=== PATIENT | female | born 2005 | race Caucasian/White ===

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

== ENCOUNTER 2023-07-21 08:07 | Outpatient (AMB) | payer BC, SELFPAY ==
[2023-07-21 08:26] VITALS: BP 100/62; PULSE 99; O2SAT 98
--- NOTE | 2023-07-21 08:26 | AM.OFFWIN_ITS ---
Intake Vital Signs 07/21/23 08:26 Height 5 ft 3 in BP 100/62 Blood Pressure Location Rt brachial Position Sitting Pulse 99 Pulse Source Pulse Oximeter Pulse Oximetry (%) 98 Oxygen Delivery Method Room Air Intake Visit Reasons: EST/uti (lobby) Intake Note: pt is here for c/o possible uti Patient Tobacco Use Status: Never used Tobacco Allergies No Known Allergies Allergy (Verified 07/21/23 08:36) Medication List - Last Reconciled 07/21/23 by Moi Michelle MD amitriptyline 10 mg PO BEDTIME 30 days levonorgestrel-ethinyl estrad 0.1-20 mg-mcg (Aviane) 1 tab PO DAILY magnesium oxide 250 mg PO BEDTIME riboflavin (vitamin B2) 200 mg (2 x 100 mg) PO BID sumatriptan succinate 100 mg PO; 1/2 tab to 1 tab at onset of migraine. Max 200 mg a day, Do not exceed 4 tabs a week. 30 days Do you need a note to return to daycare/school/sports/work: No HPI EST/uti (lobby) HPI Details Patient presents for a sick visit. Reports symptoms of increased frequency of urination, burning on urination and discomfort in the suprapubic area. Symptoms started in the past few days. No fevers or chills. No nausea or vomiting. [facility] Medical History (Updated 01/23/23 @ 02:40 by Iesha Santizo MD) Irregular menses Vitamin D deficiency Anxiety and depression Surgical History No pertinent past surgical history Family History Mother No problems noted. Family/Other Hx of migraines Social History Household Members: Family Housing: House Alcohol intake: never Patient Tobacco Use Status: Never used Tobacco e-Cigarette/Vaping Use: Never Used Second Hand Smoke Exposure: No service: No Current occupational status: student Cognitive needs: No Hearing needs: No Vision needs: No Physical Exam Vital Signs: Last Vital Signs Pulse 99 07/21/23 08:26 BP 100/62 07/21/23 08:26 Pulse Ox 98 07/21/23 08:26 Oxygen Delivery Method Room Air 07/21/23 08:26 Other: No suprapubic tenderness General: Yes Bimanual renal exam normal bilaterally and Yes no CVA tenderness Back/Spine/Pelvis Back: no CVA tenderness Assessment & Plan Assessment & Plan (1) Urinary tract infection: Code(s): N39.0 - Urinary tract infection, site not specified Plan: Bactrim and Pyridium called in. If symptoms do not improve to follow-up here. Coding Level of Care Code Est Pt Level 3 (27391) Diagnoses Urinary tract infection N39.0
== END 2023-07-21 08:45 | disposition home or self-care (01) ==
PROVIDERS: PCP Internal Medicine; Visit Provider Internal Medicine
DX: N39.0 Urinary tract infection, site not specified (principal)
CPT/HCPCS: 99213

== ENCOUNTER 2023-08-10 10:44 | Outpatient (AMB) | payer BC, SELFPAY ==
[2023-08-10 10:47] VITALS: BP 110/72; PULSE 83; TEMP 36.4; O2SAT 97; BMI 21.3
--- NOTE | 2023-08-10 10:47 | MHC.OFFWIV ---
Intake Vital Signs 08/10/23 10:47 Height 5 ft 3 in Weight 120 lb BMI 21.3 BP 110/72 Blood Pressure Location Lt brachial Position Sitting Pulse 83 Pulse Source Pulse Oximeter Temp 97.6 F Temp Source Temporal Artery Scan Pulse Oximetry (%) 97 Oxygen Delivery Method Room Air Intake Visit Reasons: EP ?UTI/stomach pains Intake Note: pt is here today for UTI started 1 month ago Patient Tobacco Use Status: Never used Tobacco Allergies No Known Allergies Allergy (Verified 08/10/23 10:55) Do you need a note to return to daycare/school/sports/work: No HPI HPI Comments History of Present Illness Details Patient presents to the walk-in today for sick visit, she was accompanied by her mother Endorses intermittent lower abdominal pain for last 4 weeks Recently treated for UTI, states urinary symptoms improved but continues with lower abdominal pain Endorses normal BMs, no nausea vomiting or diarrhea Tolerating p.o., no change in diet. No anorexia. Denies fevers, chills, weakness Reports she has not sexually active, no vaginal bleeding or discharge discharge. no concern for STI her . LMP last week, normal per patient. Pain occurs approximately 4 times per week. She is unable to reproduce the pain. She does not have any pain at this time Pain lasts for approximately 1 minute and then resolves on its own [facility] Medical History (Updated 08/10/23 @ 12:57 by Marianela Cleary APRN, SPEECH CLINICIAN) Irregular menses Vitamin D deficiency Anxiety and depression Surgical History No pertinent past surgical history Family History Mother No problems noted. Family/Other Hx of migraines Social History Household Members: Family Housing: House Alcohol intake: never Patient Tobacco Use Status: Never used Tobacco e-Cigarette/Vaping Use: Never Used Second Hand Smoke Exposure: No service: No Current occupational status: student Cognitive needs: No Hearing needs: No Vision needs: No Review of Systems Const All systems reviewed & are unremarkable except as noted in HPI and below Physical Exam Vital Signs: Last Vital Signs Temp 97.6 F 08/10/23 10:47 Pulse 83 08/10/23 10:47 BP 110/72 08/10/23 10:47 Pulse Ox 97 08/10/23 10:47 Oxygen Delivery Method Room Air 08/10/23 10:47 BMI result Body Mass Index 21.3 General: awake, alert, oriented. Answers questions appropriately. Fully engaged in examination. Skin: warm, dry, intact HEENT: Normocephalic. Hearing intact. Cardiac: External chest normal in appearance. Respiratory: No cough, audible wheezing or stridor. Abdomen: without gross distension. soft, nontender. no guarding. no CVA tenderness. MS: No obvious swelling or deformities. Neurological: Oriented to person, place, time and situation. Thought process intact. No gait abnormalities appreciated. Psychiatric: Appropriate mood and affect. Good judgment and insight. Results AMB Urinalysis, Automated UA Leukoctes 0 Ar/uL Last Edit by LINDA Harris on 08/10/23 11:11 UA Nitrite Negative Last Edit by Ashley Tapia CCM on 08/10/23 11:11 UA Urobilinogen 0.2 mg/dL Last Edit by Ashley Tapia CCM on 08/10/23 11:11 UA Protein 15 mg/dL Last Edit by Ashley Tapia CCM on 08/10/23 11:11 UA pH 6.0 Last Edit by Ashley Tapia CCM on 08/10/23 11:11 UA Blood 0 Priyank/uL Last Edit by Ashley Tapia CCM on 08/10/23 11:11 UA Specific [place] 1.025 Last Edit by LINDA Harris on 08/10/23 11:11 UA Ketone Positive Last Edit by Ashley Tapia CCM on 08/10/23 11:11 UA Bilirubin 0 mg/dL Last Edit by Ashley Tapia CCM on 08/10/23 11:11 UA Glucose 0 mg/dL Last Edit by Ashley Tapia CCM on 08/10/23 11:11 Results Reviewed Results Reviewed: Laboratory Last Values Urine pH (Auto) 6.0 08/10/23 11:08 Specific [place] (Auto) 1.025 08/10/23 11:08 Urine Protein (Auto) 15 mg/dL 08/10/23 11:08 Glucose (UA)(Auto) 0 mg/dL 08/10/23 11:08 Urine Ketones (Auto) Positive 08/10/23 11:08 Urine Blood (Auto) 0 Priyank/uL 08/10/23 11:08 Urine Nitrite (Auto) Negative 08/10/23 11:08 Urine Bilirubin (Auto) 0 mg/dL 08/10/23 11:08 Urine Urobilinogen (Auto) 0.2 mg/dL 08/10/23 11:08 Leukocyte Esterase (Auto) 0 Ar/uL 08/10/23 11:08 Assessment & Plan Assessment & Plan (1) Abdominal pain: Code(s): R10.9 - Unspecified abdominal pain Plan UA reviewed, negative for nitrites, negative for leuks. Patient denies UTI symptoms. Currently not experiencing any abdominal pain Abdominal exam benign, unable to reproduce pain on exam. Lengthy discussion with patient and her mother. Red flag symptoms reviewed with mother and patient. She seek treatment in the emergency room for red flag symptoms. Patient advised to follow up with PCP as planned. Orders: Orders AMB Urinalysis Automated Today Z13.9 - Encounter for screening, unspecified Coding Level of Care Code Est Pt Level 3 (99461) Diagnoses Abdominal pain R10.9
== END 2023-08-10 11:33 | disposition home or self-care (01) ==
PROVIDERS: PCP Internal Medicine; Visit Provider Registered Nurse Emergency
DX: R10.9 Unspecified abdominal pain (principal)
CPT/HCPCS: 81003; 99213

== ENCOUNTER 2023-08-18 10:22 | Outpatient (AMB) | payer BC, SELFPAY ==
[2023-08-18 10:48] VITALS: BP 120/86; PULSE 82; O2SAT 98; BMI 21.1
--- NOTE | 2023-08-18 10:48 | MHC.PC.OV ---
Vital Signs 08/18/23 10:48 Height 5 ft 3 in Weight 119 lb BMI 21.1 BP 120/86 Blood Pressure Location Lt brachial Position Sitting Pulse 82 Pulse Source Pulse Oximeter Pulse Oximetry (%) 98 Oxygen Delivery Method Room Air Intake Visit Reasons: followup [place], abd pain Intake Note: Pt is here today for her f/u [place] for UTI Allergies No Known Allergies Allergy (Verified 09/07/23 04:07) Medication List - Last Reconciled 09/07/23 by Iesha Santizo MD amitriptyline 10 mg PO BEDTIME 30 days levonorgestrel-ethinyl estrad 0.1-20 mg-mcg (Aviane) 1 tab PO DAILY magnesium oxide 250 mg PO BEDTIME phenazopyridine 200 mg PO TID 6 doses riboflavin (vitamin B2) 200 mg (2 x 100 mg) PO BID sumatriptan succinate 100 mg PO; 1/2 tab to 1 tab at onset of migraine. Max 200 mg a day, Do not exceed 4 tabs a week. 30 days Tobacco use date assessed: 08/18/23 Dental Screening Dental Screen Date: 12/10/22 Did you have a dental visit in the last 12 months?: Yes Did you have a dental problem in the last 6 months where you did not have access to dental care?: No Was dental information given to patient?: Patient has dentist HPI followup [place], abd pain HPI Details Continue old lady here today for follow-up after recent visit to the walk-in clinic, where she was seen for acute cystitis. She was already treated with an antibiotic for urinary tract infection at the end of June of 2023, return to the walk-in clinic several days ago still complaining of some vague abdominal pain with your now dipstick showed unremarkable findings, no evidence of UTI. Patient still having some vague lower abdominal cramping but no dysuria no urinary frequency no fever or chills. [facility] Medical History Irregular menses Vitamin D deficiency Anxiety and depression Surgical History No pertinent past surgical history Family History Mother No problems noted. Family/Other Hx of migraines Social History Household Members: Family Housing: House Alcohol intake: never Patient Tobacco Use Status: Never used Tobacco e-Cigarette/Vaping Use: Never Used Second Hand Smoke Exposure: No service: No Current occupational status: student Cognitive needs: No Hearing needs: No Vision needs: No Questionnaire PHQ-9 Over the last 2 weeks, how often have you been bothered by any of the following problems? 1. Little interest or pleasure in doing things: several days 2. Feeling down, depressed, or hopeless: several days 3. Trouble falling or staying asleep, or sleeping too much: several days 4. Feeling tired or having little energy: more than half the days 5. Poor appetite or overeating: more than half the days 6. Feeling bad about yourself - or that you are a failure or have let yourself or your family down: several days 7. Trouble concentrating on things, such as reading the newspaper or watching television: more than half the days 8. Moving or speaking so slowly that other people could have noticed. Or the opposite - being so fidgety or restless that you have been moving around a lot more than usual: not at all 9. Thoughts that you would be better off or of hurting yourself in some way: not at all Total score: 10 Depression Screening Interpretation: Positive ([facility] Depression Screening Follow-up: Existing condition and In treatment Depression Screening Done: Yes 55137 - PHQ-9 Billing: Yes Source: Developed by Drs. Dilip Meng, Divine Edward, Tez Gunn and colleagues, with an educational raúl from [email or web address]. Thrive Questionnaire Date Thrive assessed: 08/18/23 I am a: Patient What is your living situation today?: I have a steady place to live Within the past 12 months, did the food you bought not last and you didn't have the money to get more?: Never true Within the past 12 months, did you worry whether your food would run out before you got money to buy more?: Never true Do you have trouble paying for medicines?: No Do you have trouble getting transportation to medical appointments?: No Do you have trouble paying your heating and electricity bill?: No Do you have trouble taking care of your child, family member or friend?: No Do you have trouble with day-to-day activities such as bathing, preparing meals, shopping, managing finances, etc.?: No Are you currently unemployed and looking for a job?: No Are you interested in more education?: No THRIVE Score: 0 KILO-7 AMB Questionnaire KILO-7 Date KILO - 7 assessed: 08/18/23 Feeling nervous, anxious, or on edge: 1 = Several days Not being able to stop or control worryin = Several days Worrying too much about different things: 1 = Several days Trouble relaxin = More than half the days Being so restless that it is hard to sit still: 1 = Several days Becoming easily annoyed or irritable: 2 = More than half the days Feeling afraid as if something awful might happen: 1 = Several days Total KILO-7 score (0-4 normal; 5-9 mild; 10-14 moderate; 15-21 severe): 9 Source: Developed by Drs. Dilip eMng, Divine Edward, Tez Gunn and colleagues, with an educational raúl from [email or web address]. KILO-7 Assessment Billing KILO-7 Assessment Tool: KILO-7 Assessment 28289 Review of Systems Const All systems reviewed & are unremarkable except as noted in HPI and below Physical exam (Primary Care) Vital Signs: Last Vital Signs Pulse 82 08/18/23 10:48 BP 120/86 08/18/23 10:48 Pulse Ox 98 08/18/23 10:48 Oxygen Delivery Method Room Air 08/18/23 10:48 BMI result Body Mass Index 21.1 Tobacco/Smoking Status: Tobacco use Status Tobacco use date assessed 08/18/23 08/18/23 10:54 Patient Tobacco Use Status Never used Tobacco 08/18/23 10:50 e-Cigarette/Vaping Use Never Used 08/18/23 10:50 PHQ-9: PHQ-9 Score PHQ-9: Total score 10 08/18/23 11:27 Depression Screening Interpretation: Positive (Followed by mental health counselor in [place]) Depression Screening Follow-up: Existing condition and In treatment Thrive Assessment: Date of Thrive Assessment Date Thrive assessed 08/18/23 08/18/23 10:57 Const General: no acute distress and alert [facility] Head: Yes normocephalic Ears: external ears normal Mouth: Normal oral and palatal mucosa present, oropharynx normal and moist mucous membranes Neck Neck: Yes full ROM, Yes no lymphadenopathy and Yes supple Thyroid: Thyroid normal Resp Auscultation: clear to auscultation bilaterally Cardio Rate: regular rate Rhythm: regular rhythm Heart sounds: S1 normal heart sound present and S2 normal heart sound present GI Palpation (GI): Soft to palpation, nontender, no guarding and no masses Auscultation: normal bowel sounds General: Yes no CVA tenderness Back/Spine/Pelvis Back: no CVA tenderness Skin General skin exam: no rashes or lesions noted Extrem Other: Slight tenderness on palpation over medial aspect of left ankle joint General: Yes normal to inspection, Yes no joint enlargement, Yes no pedal edema and Yes normal gait Results AMB Urinalysis, Automated UA Leukoctes 15 Ar/uL Last Edit by Tierra Chase CMA on 08/18/23 11:09 UA Nitrite Negative Last Edit by Tierra Chase CMA on 08/18/23 11:09 UA Urobilinogen 0.2 mg/dL Last Edit by Tierra Chase CMA on 08/18/23 11:09 UA Protein 15 mg/dL Last Edit by Tierra Chase CMA on 08/18/23 11:09 UA pH 6.0 Last Edit by Tierra Chase CMA on 08/18/23 11:09 UA Blood 10 Priyank/uL Last Edit by Tierra Chase CMA on 08/18/23 11:09 UA Specific [place] 1.030 Last Edit by Tierra Chase CMA on 08/18/23 11:09 UA Ketone Negative Last Edit by Tierra Chase CMA on 08/18/23 11:09 UA Bilirubin 1 mg/dL Last Edit by Tierra Chase CMA on 08/18/23 11:09 UA Glucose 0 mg/dL Last Edit by Tierra Chase CMA on 08/18/23 11:09 Results Reviewed Results Reviewed: Laboratory Last Values Urine pH (Auto) 6.0 08/18/23 11:00 Specific [place] (Auto) 1.030 08/18/23 11:00 Urine Protein (Auto) 15 mg/dL 08/18/23 11:00 Glucose (UA)(Auto) 0 mg/dL 08/18/23 11:00 Urine Ketones (Auto) Negative 08/18/23 11:00 Urine Blood (Auto) 10 Priyank/uL 08/18/23 11:00 Urine Nitrite (Auto) Negative 08/18/23 11:00 Urine Bilirubin (Auto) 1 mg/dL 08/18/23 11:00 Urine Urobilinogen (Auto) 0.2 mg/dL 08/18/23 11:00 Leukocyte Esterase (Auto) 15 Ar/uL 08/18/23 11:00 Assessment and Plan Assessment & Plan (1) Cystitis: Code(s): N30.90 - Cystitis, unspecified without hematuria Plan: Prescription sent for phenazopyridine 200 mg per tablet to take 1 tablet 3 times a day with full glass of water, for 2 days. Patient warned that urine will turn orange when taking this medication, stay well-hydrated avoidance of caffeinated drinks. Return to clinic if symptoms unresolved Orders: Orders AMB Urinalysis Automated 08/18/23 Z13.9 - Encounter for screening, unspecified Medications: New phenazopyridine 200 mg PO TID 6 tabs 0RF 6 doses Coding Level of Care Code Est Pt Level 3 (96287) Diagnoses Cystitis N30.90 Additional Codes KILO-7 Assessment Billing - KILO-7 Assessment Tool: KILO-7 Assessment 66253 ([id number])
== END 2023-08-18 13:24 | disposition home or self-care (01) ==
PROVIDERS: PCP Internal Medicine; Visit Provider Internal Medicine
DX: N30.90 Cystitis, unspecified without hematuria (principal)
CPT/HCPCS: 81003; 99213

== ENCOUNTER 2023-12-29 11:00 | Outpatient (AMB) | payer BC, SELFPAY ==
--- NOTE | 2023-12-29 11:42 | MHC.PC.OV ---
Vital Signs 12/29/23 11:46 Height 5 ft 3 in Weight 119 lb BMI 21.1 BP 100/68 Blood Pressure Location Lt brachial Position Sitting Pulse 80 Pulse Source Pulse Oximeter Pulse Oximetry (%) 99 Oxygen Delivery Method Room Air Intake Visit Reasons: ANNUAL Intake Note: Pt is here today for her PE Is last menstrual period known: Yes Last menstrual period: 12/16/23 Allergies No Known Allergies Allergy (Verified 12/29/23 12:05) Medication List - Last Reconciled 12/29/23 by Iesha Santizo MD amitriptyline 10 mg PO BEDTIME 30 days levonorgestrel-ethinyl estrad 0.1-20 mg-mcg (Aviane) 1 tab PO DAILY magnesium oxide 250 mg PO BEDTIME riboflavin (vitamin B2) 200 mg (2 x 100 mg) PO BID sumatriptan succinate 100 mg PO; 1/2 tab to 1 tab at onset of migraine. Max 200 mg a day, Do not exceed 4 tabs a week. 30 days Tobacco use date assessed: 12/29/23 Dental Screening Dental Screen Date: 12/29/23 Did you have a dental visit in the last 12 months?: Yes Did you have a dental problem in the last 6 months where you did not have access to dental care?: No Was dental information given to patient?: Patient has dentist HPI ANNUAL HPI Details 18-year-old lady here today for a physical exam. Currently on control pills prescribed by her OBGYN control her irregular menstrual cycle., has history of migraines, stable and controlled on present treatment. She has anxiety depression currently being followed by a therapist in [facility] Medical History (Updated 12/29/23 @ 12:22 by Iesha Santizo MD) Irregular menses Vitamin D deficiency Anxiety and depression Surgical History No pertinent past surgical history Family History Mother No problems noted. Family/Other Hx of migraines Social History Household Members: Family Housing: House Alcohol intake: never Patient Tobacco Use Status: Never used Tobacco e-Cigarette/Vaping Use: Never Used Second Hand Smoke Exposure: No service: No Current occupational status: student Cognitive needs: No Hearing needs: No Vision needs: Yes Female Reproductive History Menstrual Date of last menstrual period: 12/16/23 Questionnaire Thrive Questionnaire Date Thrive assessed: 08/18/23 I am a: Patient What is your living situation today?: I have a steady place to live Within the past 12 months, did the food you bought not last and you didn't have the money to get more?: Never true Within the past 12 months, did you worry whether your food would run out before you got money to buy more?: Never true Do you have trouble paying for medicines?: No Do you have trouble getting transportation to medical appointments?: No Do you have trouble paying your heating and electricity bill?: No Do you have trouble taking care of your child, family member or friend?: No Do you have trouble with day-to-day activities such as bathing, preparing meals, shopping, managing finances, etc.?: No Are you currently unemployed and looking for a job?: Yes Are you interested in more education?: Yes Please select the resources that you would like help with: None Currently or been in a relationship where the following occur: No concerns reported THRIVE Score: 0 AUDIT C Alcohol Use Questionnaire (AUDIT-C) 1. How often do you have a drink containing alcohol?: Never Total Score: 0 KILO-7 AMB Questionnaire KILO-7 Date KILO - 7 assessed: 08/18/23 Feeling nervous, anxious, or on edge: 1 = Several days Not being able to stop or control worryin = Several days Worrying too much about different things: 1 = Several days Trouble relaxin = Not at all Being so restless that it is hard to sit still: 0 = Not at all Becoming easily annoyed or irritable: 0 = Not at all Feeling afraid as if something awful might happen: 1 = Several days Total KILO-7 score (0-4 normal; 5-9 mild; 10-14 moderate; 15-21 severe): 4 Source: Developed by Drs. Dilip Meng, Divine Edward, Tez Gunn and colleagues, with an educational raúl from [employer]. Review of Systems Const Reports no additional complaints, Denies fatigue, Denies frequent falls and Denies weakness Eyes Details: [facility] Reports requires corrective lenses ENT Details: Gets dental prophylaxis every 6 Denies dizziness Card Denies chest pain, Denies rapid heart rate, Denies edema, Denies dyspnea and Denies dyspnea on exertion Resp Denies cough, Denies dyspnea and Denies dyspnea on exertion GI Denies abdominal pain, Denies hematochezia, Denies change in bowel habits, Denies change in stool character, Denies heartburn, Denies nausea and Denies vomiting Denies hematuria, Denies urinary frequency and Denies dysuria Musc Denies arthralgias, Denies muscle weakness and Denies numbness Skin/Breast Denies rash Neuro Denies dizziness, Denies frequent falls, Denies numbness and Denies weakness Psych Reports as per HPI Endo Denies fatigue José/Lymph Reports no additional complaints Aller/Immun Reports no additional complaints Physical exam (Primary Care) Vital Signs: Last Vital Signs Pulse 80 12/29/23 11:46 BP 100/68 12/29/23 11:46 Pulse Ox 99 12/29/23 11:46 Oxygen Delivery Method Room Air 12/29/23 11:46 BMI result Body Mass Index 21.1 Tobacco/Smoking Status: Tobacco use Status Tobacco use date assessed 12/29/23 12/29/23 11:49 Patient Tobacco Use Status Never used Tobacco 12/29/23 11:49 e-Cigarette/Vaping Use Never Used 12/29/23 11:49 Thrive Assessment: Date of Thrive Assessment Date Thrive assessed 08/18/23 12/29/23 11:49 Currently or been in a relationship where the following occur: No concerns reported Advance Care Planning discussion: Completed/Scanned Date of discussion: 12/29/23 Who was present: Patient Forms completed: Health Care Proxy Time spent: 16-45 minutes Actual minutes spent: 3 Const General: no acute distress and alert Orientation/consciousness: patient oriented x3 HENMT Head: Yes normocephalic Ears: external ears normal Mouth: Normal oral and palatal mucosa present, oropharynx normal and moist mucous membranes Eyes General: appearance normal, both eyes and all related structures Neck Neck: Yes full ROM, Yes no lymphadenopathy and Yes supple Thyroid: Thyroid normal Chest Breast/axilla palpation: normal palpation of the breasts Resp Auscultation: clear to auscultation bilaterally Cardio Rate: regular rate Rhythm: regular rhythm Heart sounds: S1 normal heart sound present and S2 normal heart sound present GI Palpation (GI): Soft to palpation, nontender, no guarding and no masses Auscultation: normal bowel sounds General: Yes no CVA tenderness Back/Spine/Pelvis Back: no CVA tenderness Skin General skin exam: no rashes or lesions noted Neuro General: patient oriented x3, gait normal, tone normal, moves all extremities, Normal light touch and pain sensation and no focal motor deficits Extrem General: Yes normal to inspection, Yes no joint enlargement, Yes no pedal edema and Yes normal gait Psych Appearance: grossly normal and well kempt Mental Status: mental status grossly normal Speech and movement: Normal speech and movement present Affect: normal affect Attitude: cooperative Thought process: Normal thought process present Office Procedures Flu Questionnaire Does the patient have a severe egg allergy?: No Does the patient have severe life threatening allergies?: No Does the patient have a fever or illness today?: No Has the patient ever had Guillain-[place] Syndrome?: No Has the patient ever had any past reaction to a flu shot?: No Immunizations Fluarix Triv [id number] (PF) 45 mcg (15 mcg x 3)/0.5 mL IM syringe Performing Provider: Iesha Santizo MD Performing Location: [facility] Administered by: Tierra Chase CMA on 12/29/23 11:59 Dose Route Admin Location Dispensed Lot Number Expiration Date NDC Stove Tender 0.5 mL IM Left Deltoid 0.5 mL [id number] 08/22/24 [id number] [employer] VIS Given Date VIS Provided VIS Publication Date 12/29/23 Single Vaccine 20 Eligibility Eligibility Date Funding Source Not [facility] Eligible 12/29/23 Private Coding Level of Care Code Est Pt Prev Care 18-39y(88344) Diagnoses Anxiety and depression F41.9; F32.9 Chronic migraine without aura G43.709 Annual visit for general adult medical examination with abnormal findings Z00.01 Advanced directives, counseling/discussion Z71.89 Irregular menses N92.6 Additional Codes Vital Signs *Quality* - Advance Care Planning discussion: Completed/Scanned ([id number]) Vital Signs *Quality* - Time spent: 16-45 minutes ([id number]) Assessment & Plan Assessment & Plan (1) Anxiety and depression: Comment: Followed by therapist in [place] Code(s): F41.9 - Anxiety disorder, unspecified; F32.9 - Major depressive disorder, single episode, unspecified Category: Medical Plan: Currently followed by therapist in [place] (2) Chronic migraine without aura: Code(s): G43.709 - Chronic migraine without aura, not intractable, without status migrainosus Category: Medical Plan: Stable controlled on amitriptyline 10 mg night and magnesium oxide 250 mg at bedtime, takes sumatriptan succinate as needed for migraine episodes, followed by Neurology (3) Annual visit for general adult medical examination with abnormal findings: Code(s): Z00.01 - Encounter for general adult medical examination with abnormal findings Plan: Will check appropriate labs. Recommended dental visit every 6 months and regular eye exams, at least every 2 years. Take adequate calcium in diet and vitamin-D 3 at 2000 IU per cap once a day, in addition to weight-bearing exercises to help maintain good muscle tone and weight control. Instructed to do self-breast exam, and recommended to get yearly mammogram, starting at age 40. Flu vaccine given today (4) Advanced directives, counseling/discussion: Code(s): Z71.89 - Other specified counseling Plan: Initiated the conversation about Advanced Directives. Advanced Directives help patients prepare for current and future decisions about their medical treatment and place of care. Discussed with patient that it is a process where a patients current condition and prognosis are reviewed, their wishes for information regarding their illness are elicited, and likely medical dilemmas are presented and options discussed. Healthcare proxy form completed today The form can be amended as needed, reviewed yearly and make changes as needed (5) Irregular menses: Code(s): N92.6 - Irregular menstruation, unspecified Category: Medical Plan: Currently on control pills. Currently not sexually active, does not want to get cervical cancer screening or pelvic exam at present Orders: Orders Influenza [id number] Immunization 12/29/23 Z23 - Encounter for immunization Vitamin D 25-OH Total 12/29/23 F32.9 - Major depressive disorder, single episode, unspecified, F41.9 - Anxiety disorder, unspecified, G43.709 - Chronic migraine without aura, not intractable, without status migrainosus, Z00.01 - Encounter for general adult medical examination with abnormal findings Alanine Aminotransferase 12/29/23 F32.9 - Major depressive disorder, single episode, unspecified, F41.9 - Anxiety disorder, unspecified, G43.709 - Chronic migraine without aura, not intractable, without status migrainosus, Z00.01 - Encounter for general adult medical examination with abnormal findings Aspartate Amino Transferase 12/29/23 F32.9 - Major depressive disorder, single episode, unspecified, F41.9 - Anxiety disorder, unspecified, G43.709 - Chronic migraine without aura, not intractable, without status migrainosus, Z00.01 - Encounter for general adult medical examination with abnormal findings Glucose Fasting 12/29/23 F32.9 - Major depressive disorder, single episode, unspecified, F41.9 - Anxiety disorder, unspecified, G43.709 - Chronic migraine without aura, not intractable, without status migrainosus, Z00.01 - Encounter for general adult medical examination with abnormal findings Lipid Panel 12/29/23 F32.9 - Major depressive disorder, single episode, unspecified, F41.9 - Anxiety disorder, unspecified, G43.709 - Chronic migraine without aura, not intractable, without status migrainosus, Z00.01 - Encounter for general adult medical examination with abnormal findings TSH reflex Free T4 12/29/23 N92.6 - Irregular menstruation, unspecified
[2023-12-29 11:46] VITALS: BP 100/68; PULSE 80; O2SAT 99; BMI 21.1
== END 2023-12-29 12:22 | disposition home or self-care (01) ==
LOC: HO.HMCC 11:01
PROVIDERS: PCP Internal Medicine; Visit Provider Internal Medicine
DX: F41.9 Anxiety disorder, unspecified (principal); F32.9 Major depressive disorder, single episode, unspecified; G43.709 Chronic migraine without aura, not intractable, without status migrainosus; Z00.01 Encounter for general adult medical examination with abnormal findings; Z71.89 Other specified counseling; N92.6 Irregular menstruation, unspecified; Z00.00 Encounter for general adult medical examination without abnormal findings

== ENCOUNTER → 2023-12-29 11:00 | Outpatient (BNVA) | payer BC, SELFPAY | PROVIDERS: PCP Internal Medicine; Visit Provider Internal Medicine | DX: Z00.01 Encounter for general adult medical examination with abnormal findings (principal); F41.9 Anxiety disorder, unspecified; F32.9 Major depressive disorder, single episode, unspecified; G43.709 Chronic migraine without aura, not intractable, without status migrainosus; N92.6 Irregular menstruation, unspecified; Z79.899 Other long term (current) drug therapy; Z71.89 Other specified counseling; Z23 Encounter for immunization | CPT/HCPCS: 90471; 90656 ==

== ENCOUNTER 2024-04-26 14:50 | Outpatient (AMB) | payer BC, SELFPAY ==
--- NOTE | 2024-04-26 15:03 | MHC.OFFWIV ---
Intake Vital Signs 04/26/24 15:18 Weight 120 lb 6 oz BP 120/76 Blood Pressure Location Lt brachial Position Sitting Pulse 92 Pulse Source Pulse Oximeter Temp 98.1 F Temp Source Oral Pulse Oximetry (%) 97 Oxygen Delivery Method Room Air Intake Visit Reasons: EP pain when urinating ? UTI Patient Tobacco Use Status: Never used Tobacco Allergies No Known Allergies Allergy (Verified 12/29/23 12:05) HPI HPI Comments History of Present Illness Details This is a 18-year-old female with a past medical history migraine headaches, depression and irregular menses presenting for evaluation of dysuria that she has had since Thursday. Patient denies having any fevers, chills, abdominal pain, nausea, vomiting or vaginal discharge. Patient states that she is not sexually active. Patient has not taken any medication for treatment of her symptoms. Patient's last normal menstrual period started on April 06, 2024. [facility] Medical History (Updated 04/26/24 @ 16:09 by Lashon Davis PA-C) Dysuria Irregular menses Vitamin D deficiency Anxiety and depression Surgical History No pertinent past surgical history Family History Mother No problems noted. Family/Other Hx of migraines Social History Household Members: Family Housing: House Alcohol intake: never Patient Tobacco Use Status: Never used Tobacco e-Cigarette/Vaping Use: Never Used Second Hand Smoke Exposure: No service: No Current occupational status: student Cognitive needs: No Hearing needs: No Vision needs: Yes Review of Systems Const All systems reviewed & are unremarkable except as noted in HPI and below Eyes Reports no additional complaints ENT Reports no additional complaints Card Reports no additional complaints Resp Reports no additional complaints GI Reports no additional complaints Reports dysuria, Denies urinary urgency, Denies vaginal discharge and Denies vaginal pruritus Musc Reports no additional complaints Skin/Breast Reports system reviewed and no additional complaints, except as documented Neuro Reports no additional complaints Psych Reports no additional complaints Endo Reports no additional complaints José/Lymph Reports no additional complaints Aller/Immun Reports no additional complaints Physical Exam Vital Signs: Last Vital Signs Temp 98.1 F 04/26/24 15:18 Pulse 92 04/26/24 15:18 BP 120/76 04/26/24 15:18 Pulse Ox 97 04/26/24 15:18 Oxygen Delivery Method Room Air 04/26/24 15:18 Patient is afebrile. Const General: cooperative, healthy appearing, comfortable, no acute distress, well developed, alert, awake and Physically active Nutritional Appearance: thin Orientation/consciousness: patient oriented x3 Limitations: no limitations Resp Effort & Inspection: normal respiratory effort Auscultation: clear to auscultation bilaterally Cardio Rate: regular rate Rhythm: regular rhythm GI Palpation (GI): Soft to palpation and nontender General: Yes Bimanual renal exam normal bilaterally, Yes bladder normal to palpation and Yes no CVA tenderness Bimanual exam- vagina & uterus: bladder normal to palpation Back/Spine/Pelvis Back: no CVA tenderness Neuro General: patient oriented x3 Psych Appearance: grossly normal Mental Status: mental status grossly normal Insight: Good insight present (Psych) Judgement: Good judgement present (Psych) Results AMB Urinalysis, Automated UA Leukoctes 15 Ar/uL Last Edit by Nima Torrez CCM on 04/26/24 15:18 UA Nitrite Negative Last Edit by Nima Torrez CCM on 04/26/24 15:18 UA Urobilinogen 0.2 mg/dL Last Edit by Nima Torrez [facility] on 04/26/24 15:18 UA Protein 15 mg/dL Last Edit by Nima Torrez [facility] on 04/26/24 15:18 UA pH 7.5 Last Edit by Nima Torrez [facility] on 04/26/24 15:18 UA Blood 0 Priyank/uL Last Edit by Nima Torrez [facility] on 04/26/24 15:18 UA Specific [place] 1.020 Last Edit by Nima Torrez CCM on 04/26/24 15:18 UA Ketone Negative Last Edit by Nima Torrez CCM on 04/26/24 15:18 UA Bilirubin 0 mg/dL Last Edit by Nima Torrez [facility] on 04/26/24 15:18 UA Glucose 0 mg/dL Last Edit by Nima Torrez [facility] on 04/26/24 15:18 Results Reviewed Results Reviewed: Laboratory Last Values Urine pH (Auto) 7.5 04/26/24 15:17 Specific [place] (Auto) 1.020 04/26/24 15:17 Urine Protein (Auto) 15 mg/dL 04/26/24 15:17 Glucose (UA)(Auto) 0 mg/dL 04/26/24 15:17 Urine Ketones (Auto) Negative 04/26/24 15:17 Urine Blood (Auto) 0 Priyank/uL 04/26/24 15:17 Urine Nitrite (Auto) Negative 04/26/24 15:17 Urine Bilirubin (Auto) 0 mg/dL 04/26/24 15:17 Urine Urobilinogen (Auto) 0.2 mg/dL 04/26/24 15:17 Leukocyte Esterase (Auto) 15 Ar/uL 04/26/24 15:17 Urinalysis reviewed. Assessment & Plan Assessment & Plan (1) Dysuria: Comment: Patient's urinalysis is not overwhelmingly suspicious of an acute urinary tract infection. Patient states that she has had many UTIs before and her current dysuria is very bothersome to her. Patient does not have a Quality Control Industrial Engineer of record and states that her primary care physician prescribes her control pills. Patient will be treated with antibiotics however urine culture will be obtained for further analysis of her dysuria. Code(s): R30.0 - Dysuria Plan: Macrobid b.i.d. x7 days. Urine culture is pending. Orders: Orders Urine Culture Today R30.0 - Dysuria AMB Urinalysis Automated Today Z13.9 - Encounter for screening, unspecified Medications: New nitrofurantoin monohyd/m-cryst 100 mg (Macrobid) must administer with a meal/food 100 mg PO BID 14 caps 0RF Coding Level of Care Code Est Pt Level 3 (70756) Diagnoses Dysuria R30.0 Time Spent (min) 20
[2024-04-26 15:18] VITALS: BP 120/76; PULSE 92; TEMP 36.7; O2SAT 97
== END 2024-04-26 16:11 | disposition home or self-care (01) ==
PROVIDERS: PCP Internal Medicine; Visit Provider Physician Assistant
DX: R30.0 Dysuria (principal); Z13.9 Encounter for screening, unspecified

== ENCOUNTER 2024-04-26 14:50 | Outpatient (REF) | payer BC, SELFPAY | END 2024-04-26 14:51 | disposition home or self-care (01) | LOC: HO.LNP 14:50 | PROVIDERS: PCP Internal Medicine; Visit Provider Physician Assistant | DX: R30.0 Dysuria (principal) | CPT/HCPCS: 81003; 87086 ==

== ENCOUNTER 2024-08-01 09:17 | Outpatient (AMB) | payer BC, SELFPAY ==
[2024-08-01 09:26] VITALS: BP 100/62; PULSE 85; O2SAT 98; BMI 21.3
--- NOTE | 2024-08-01 09:26 | MHC.OFFVIS ---
Vital Signs 08/01/24 09:26 Height 5 ft 3 in Weight 120 lb BMI 21.3 BP 100/62 Blood Pressure Location Rt brachial Position Sitting Pulse 85 Pulse Source Pulse Oximeter Pulse Oximetry (%) 98 Oxygen Delivery Method Room Air Intake Visit Reasons: 1 yr f/u - Headaches Intake Note: Patient presents 1 year follow up for headaches [employer] Attendant Required: No Accompanied by: Self / Same As Patient Allergies No Known Allergies Allergy (Verified 08/01/24 09:29) Medication List - Last Reconciled 08/01/24 by DEV Ge levonorgestrel-ethinyl estrad 0.1-20 mg-mcg (Vienva) 1 tab PO DAILY lorazepam 0.5 mg PO DAILY PRN magnesium oxide 250 mg PO BEDTIME sertraline 50 mg PO DAILY sumatriptan succinate 50 - 100 mg orally at onset of headache, may repeat in 2 hrs PRN; max 2 tabs per day or 4 tabs/week (may take with Ibuprofen) 30 days HPI Comments Details: 18 y/o female patient presents with her mother for follow up of migraine. Pt was last seen in June 2022 by our former colleague Dayron Duke Np. Pt deneis any significant interval medical history changes. Pt reports her migraines are better overall. Pt reports she has 1-2 mild migraine days per month. She is using Ibuprofen 400mg which is effective. She is compliant w/ OTC Magnesium. She stopped Amitriptyline and has not been taking Sumatriptan- though this was previously helpful. She previously tried Nurtec and Ubrelvy sample, but they were not helpful to relieve her headache. 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 Baseline migraine: pressure behind one or both eyes a/w photophobia, phonophobia, activity intolerance. [facility] Medical History (Updated 08/01/24 @ 10:15 by DEV Ge) Dysuria Irregular menses Vitamin D deficiency Anxiety and depression Surgical History No pertinent past surgical history Family History Mother No problems noted. Family/Other Hx of migraines Social History (Reviewed 08/01/24 @ 09:26 by LENARD Spencer Household Members: Family Housing: House Alcohol intake: never Patient Tobacco Use Status: Never used Tobacco e-Cigarette/Vaping Use: Never Used Second Hand Smoke Exposure: No service: No Current occupational status: student Cognitive needs: No Hearing needs: No Vision needs: Yes Physical Exam Vital Signs: Last Vital Signs Pulse 85 08/01/24 09:26 BP 100/62 08/01/24 09:26 Pulse Ox 98 08/01/24 09:26 Oxygen Delivery Method Room Air 08/01/24 09:26 BMI result Body Mass Index 21.3 Const General: cooperative and no acute distress Orientation/consciousness: patient oriented x3 Resp Effort & Inspection: normal respiratory effort and able to speak in complete sentences Neuro General: patient oriented x3 Cranial nerves: Yes CN's II-XII intact bilaterally Cognition (Neuro): normal cognition Psych Appearance: grossly normal Mental Status: mental status grossly normal Speech and movement: Normal speech and movement present Affect: normal affect Attitude: cooperative Assessment & Plan Assessment & Plan (1) Migraine without aura: Code(s): G43.009 - Migraine without aura, not intractable, without status migrainosus Category: Medical Qualifiers: Status migrainosus presence: without status migrainosus Intractability: not intractable Qualified Code(s): G43.009 - Migraine without aura, not intractable, without status migrainosus Plan Continue to optimize good self- care- including eating a healthy diet, drinking sufifcent fluids, engaging in regular exercise, and maintaining a regular sleep schedule. Continue OTC magnesium 200-250 mg daily QHS. May continue OTC Advil 400mg every 4 hours prn. Will refill sumatriptan, for mod-severe migraine attack. Resume sumatriptan with OTC Tylenol 650-1,000mg every 4-6 hours, Ibuprofen (liquid gels) 400-600mg every 4-6 hours, or Naproxen (liquid gels) 440mg q 12 hrs prn. Advised patient not to use too much OTC medication to prevent rebound headache. Pt to follow-up in 12 months or sooner prn. Medications: New sumatriptan succinate (0.5 - 1 x 100 mg) 50 - 100 mg orally at onset of headache, may repeat in 2 hrs PRN; max 2 tabs per day or 4 tabs/week (may take with Ibuprofen) 30 days 12 tabs 6RF migraine headache Coding Level of Care Code Est Pt Level 3 (23163) Diagnoses Migraine without aura and without status migrainosus, not intractable G43.009 Status migrainosus presence: without status migrainosus Intractability: not intractable
== END 2024-08-01 10:13 | disposition home or self-care (01) ==
LOC: HO.HSMS 09:17
PROVIDERS: Absent Provider Nurse Practitioner Family; Visit Provider Nurse Practitioner Family
DX: G43.009 Migraine without aura, not intractable, without status migrainosus (principal)
CPT/HCPCS: 99213

== ENCOUNTER → 2024-08-01 09:17 | Outpatient (BNVA) | payer BC, SELFPAY | PROVIDERS: Absent Provider Nurse Practitioner Family; Visit Provider Nurse Practitioner Family ==

== ENCOUNTER 2025-02-20 14:51 | Outpatient (AMB) | payer BC, SELFPAY ==
[2025-02-20 14:54] VITALS: BP 104/66; PULSE 80; O2SAT 97; BMI 24.1
--- NOTE | 2025-02-20 14:54 | MHC.PC.OV ---
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 Accompanied by: Self / Same As Patient Allergies No Known Allergies Allergy (Verified 02/20/25 15:00) Medication List - Last Reconciled 02/20/25 by Iesha Santizo MD levonorgestrel-ethinyl estrad 0.1-20 mg-mcg (Vienva) 1 tab PO DAILY lorazepam 0.5 mg PO DAILY PRN magnesium oxide 250 mg PO BEDTIME sertraline 50 mg PO DAILY sumatriptan succinate 50 - 100 mg orally at onset of headache, may repeat in 2 hrs PRN; max 2 tabs per day or 4 tabs/week (may take with Ibuprofen) 30 days Tobacco use date assessed: 02/20/25 Dental Screening Dental Screen Date: 02/20/25 Did you have a dental visit in the last 12 months?: Yes Did you have a dental problem in the last 6 months where you did not have access to dental care?: No Was dental information given to patient?: Patient has dentist HPI Annual PE HPI Details The patient is a 19 year old female presenting for her physical exam. There has been a weight gain of 16 pounds since July, over the last 6 months. She takes a control pill to manage irregular periods. 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 She is due for her first Pap smear. She reports not being sexually active. For migraines, she is followed by patient seen neurology clinic, and takes sumatriptan, which has been helping. She also takes magnesium to help with headaches and sleep, which she finds effective. Has been diagnosed to have anxiety and depression, sees Dr. Beaver at [facility] currently on sertraline and lorazepam taken as needed , and sees a therapist every two weeks. Her immunizations are up to date, including Tdap (due next year), HPV, and two doses of the COVID vaccine. She had a flu shot in 2022. Her last blood work was two years ago and was normal. She had LASIK surgery in September. [facility] Medical History (Updated 02/25/25 @ 18:58 by Iesha Santizo MD) Irregular menses Vitamin D deficiency Anxiety and depression Surgical History (Updated 02/25/25 @ 18:56 by Iesha Santizo MD) Hx of LASIK Family History (Updated 02/25/25 @ 18:55 by Iesha Santizo MD) Mother No problems noted. Father Hypercholesterolemia Social History Household Members: Family Housing: House Alcohol intake: never Patient Tobacco Use Status: Never used Tobacco e-Cigarette/Vaping Use: Never Used Second Hand Smoke Exposure: No service: No Current occupational status: student Cognitive needs: No Hearing needs: No Vision needs: Yes Questionnaire PHQ-9 Over the last 2 weeks, how often have you been bothered by any of the following problems? 1. Little interest or pleasure in doing things: several days 2. Feeling down, depressed, or hopeless: not at all 3. Trouble falling or staying asleep, or sleeping too much: more than half the days 4. Feeling tired or having little energy: several days 5. Poor appetite or overeating: not at all 6. Feeling bad about yourself - or that you are a failure or have let yourself or your family down: not at all 7. Trouble concentrating on things, such as reading the newspaper or watching television: not at all 8. Moving or speaking so slowly that other people could have noticed. Or the opposite - being so fidgety or restless that you have been moving around a lot more than usual: not at all 9. Thoughts that you would be better off or of hurting yourself in some way: not at all Total score: 4 Depression Screening Interpretation: Negative Depression Screening Done: Yes 13986 - PHQ-9 Billing: Yes Source: Developed by Drs. Dilip Meng, Divine Edward, Tez Gunn and colleagues, with an educational raúl from [employer]. Thrive Questionnaire Date Thrive assessed: 02/20/25 I am a: Patient What is your living situation today?: I have a steady place to live Within the past 12 months, did the food you bought not last and you didn't have the money to get more?: Never true Within the past 12 months, did you worry whether your food would run out before you got money to buy more?: Never true Do you have trouble paying for medicines?: No Do you have trouble getting transportation to medical appointments?: No Do you have trouble paying your heating and electricity bill?: I choose not to answer this question Do you have trouble taking care of your child, family member or friend?: No Do you have trouble with day-to-day activities such as bathing, preparing meals, shopping, managing finances, etc.?: No Are you currently unemployed and looking for a job?: Yes Are you interested in more education?: Yes Please select the resources that you would like help with: None Currently or been in a relationship where the following occur: No concerns reported THRIVE Score: 0 AUDIT C Alcohol Use Questionnaire (AUDIT-C) 1. How often do you have a drink containing alcohol?: Monthly or less 2. How many drinks containing alcohol do you have on a typical day when you are drinking?: 1 or 2 3. How often do you have six or more drinks on one occasion?: Never Total Score: 1 Score Reviewed/Action Taken: Yes KILO-7 AMB Questionnaire KILO-7 Date KILO - 7 assessed: 02/20/25 Feeling nervous, anxious, or on edge: 1 = Several days Not being able to stop or control worryin = Not at all Worrying too much about different things: 0 = Not at all Trouble relaxin = Several days Being so restless that it is hard to sit still: 1 = Several days Becoming easily annoyed or irritable: 1 = Several days Feeling afraid as if something awful might happen: 0 = Not at all Total KILO-7 score (0-4 normal; 5-9 mild; 10-14 moderate; 15-21 severe): 4 Source: Developed by Drs. Dilip Meng, Divine Edward, Tez Gunn and colleagues, with an educational raúl from [employer]. KILO-7 Assessment Billing KILO-7 Assessment Tool: KILO-7 Assessment 54753 Review of Systems Const All systems reviewed & are unremarkable except as noted in HPI and below Eyes Reports no additional complaints ENT Reports no additional complaints Card Reports no additional complaints Resp Reports no additional complaints GI Reports no additional complaints Reports as per HPI, Denies vaginal discharge and Denies vaginal pruritus Musc Reports no additional complaints Skin/Breast Reports system reviewed and no additional complaints, except as documented Neuro Reports no additional complaints Psych Reports as per HPI Endo Reports no additional complaints José/Lymph Reports no additional complaints Aller/Immun Reports no additional complaints Physical exam (Primary Care) Vital Signs: Last Vital Signs Pulse 80 02/20/25 14:54 BP 104/66 02/20/25 14:54 Pulse Ox 97 02/20/25 14:54 BMI result Body Mass Index 24.1 Tobacco/Smoking Status: Tobacco use Status Tobacco use date assessed 02/20/25 02/20/25 14:57 Patient Tobacco Use Status Never used Tobacco 02/20/25 14:57 e-Cigarette/Vaping Use Never Used 02/20/25 14:57 PHQ-9: PHQ-9 Score PHQ-9: Total score 4 02/20/25 15:31 Depression Screening Interpretation: Negative Thrive Assessment: Date of Thrive Assessment Date Thrive assessed 02/20/25 02/20/25 14:57 Currently or been in a relationship where the following occur: No concerns reported Const General: no acute distress and alert Orientation/consciousness: patient oriented x3 HENMT Head: Yes normocephalic Ears: external ears normal Mouth: Normal oral and palatal mucosa present, oropharynx normal and moist mucous membranes Eyes General: appearance normal, both eyes and all related structures Neck Neck: Yes full ROM, Yes no lymphadenopathy and Yes supple Thyroid: Thyroid normal Chest Breast/axilla palpation: normal palpation of the breasts Resp Auscultation: clear to auscultation bilaterally Cardio Rate: regular rate Rhythm: regular rhythm Heart sounds: S1 normal heart sound present and S2 normal heart sound present GI Palpation (GI): Soft to palpation, nontender, no guarding and no masses Auscultation: normal bowel sounds General: Yes no CVA tenderness Back/Spine/Pelvis Back: no CVA tenderness Skin General skin exam: no rashes or lesions noted Neuro General: patient oriented x3, gait normal, tone normal, moves all extremities, Normal light touch and pain sensation and no focal motor deficits Extrem General: Yes normal to inspection, Yes no joint enlargement, Yes no pedal edema and Yes normal gait Psych Appearance: grossly normal and well kempt Mental Status: mental status grossly normal Speech and movement: Normal speech and movement present Affect: normal affect Coding Level of Care Code Est Pt Prev Care 18-39y(69778) Diagnoses Annual visit for general adult medical examination with abnormal findings Z00.01 Encounter for screening for malignant neoplasm of cervix Z12.4 Anxiety and depression F41.9; F32.9 Irregular menses N92.6 Migraine without aura and without status migrainosus, not intractable G43.009 Intractability: not intractable Status migrainosus presence: without status migrainosus Additional Codes KILO-7 Assessment Billing - KILO-7 Assessment Tool: KILO-7 Assessment 74696 ([id number]) PHQ-9 - 62315 - PHQ-9 Billing: Yes ([id number]) Assessment & Plan Assessment & Plan (1) Annual visit for general adult medical examination with abnormal findings: Code(s): Z00.01 - Encounter for general adult medical examination with abnormal findings Plan: Will check appropriate labs. Recommended dental visit every 6 months and regular eye exams, at least every 2 years. Instructed to do self-breast exam, and referral to OBGYN for her initial cervical cancer screening and pelvic exam and management of irregular menstrual cycle. Recommended getting yearly flu vaccine but does not want to get a COVID booster, up-to-date her Tdap due for again next year (2) Encounter for screening for malignant neoplasm of cervix: Code(s): Z12.4 - Encounter for screening for malignant neoplasm of cervix Plan: Referral to [facility] [facility] OBGYN ordered (3) Anxiety and depression: Comment: Followed by Dr Sd Solo in [place], sees therapist q2 weeks Code(s): F41.9 - Anxiety disorder, unspecified; F32.9 - Major depressive disorder, single episode, unspecified Category: Medical Plan: Currently being followed by Dr. Beaver at [facility] , and sees her therapist every 2 weeks. Currently on sertraline and lorazepam (4) Irregular menses: Code(s): N92.6 - Irregular menstruation, unspecified Category: Medical Plan: Takes Vienva tablet daily to regulate her menstrual cycle referred to OBGYN for her initial cervical cancer screening and pelvic exam. Refilled her control pills until seen by OBGYN (5) Migraine without aura: Code(s): G43.009 - Migraine without aura, not intractable, without status migrainosus Category: Medical Qualifiers: Intractability: not intractable Status migrainosus presence: without status migrainosus Qualified Code(s): G43.009 - Migraine without aura, not intractable, without status migrainosus Plan: Followed by [facility] neurology, currently taking sumatriptan as needed and magnesium oxide Orders: Orders Vitamin D 25-OH Total 02/20/25 F32.9 - Major depressive disorder, single episode, unspecified, F41.9 - Anxiety disorder, unspecified, G43.009 - Migraine without aura, not intractable, without status migrainosus, N92.6 - Irregular menstruation, unspecified, Z00.01 - Encounter for general adult medical examination with abnormal findings, Z13.1 - Encounter for screening for diabetes mellitus, Z13.220 - Encounter for screening for lipoid disorders Complete Blood Count Auto Diff 02/20/25 F32.9 - Major depressive disorder, single episode, unspecified, F41.9 - Anxiety disorder, unspecified, G43.009 - Migraine without aura, not intractable, without status migrainosus, N92.6 - Irregular menstruation, unspecified, Z00.01 - Encounter for general adult medical examination with abnormal findings, Z13.1 - Encounter for screening for diabetes mellitus, Z13.220 - Encounter for screening for lipoid disorders Basic Metabolic Panel Fasting 02/20/25 F32.9 - Major depressive disorder, single episode, unspecified, F41.9 - Anxiety disorder, unspecified, G43.009 - Migraine without aura, not intractable, without status migrainosus, N92.6 - Irregular menstruation, unspecified, Z00.01 - Encounter for general adult medical examination with abnormal findings, Z13.1 - Encounter for screening for diabetes mellitus, Z13.220 - Encounter for screening for lipoid disorders Aspartate Amino Transferase 02/20/25 F32.9 - Major depressive disorder, single episode, unspecified, F41.9 - Anxiety disorder, unspecified, G43.009 - Migraine without aura, not intractable, without status migrainosus, N92.6 - Irregular menstruation, unspecified, Z00.01 - Encounter for general adult medical examination with abnormal findings, Z13.1 - Encounter for screening for diabetes mellitus, Z13.220 - Encounter for screening for lipoid disorders Alanine Aminotransferase 02/20/25 F32.9 - Major depressive disorder, single episode, unspecified, F41.9 - Anxiety disorder, unspecified, G43.009 - Migraine without aura, not intractable, without status migrainosus, N92.6 - Irregular menstruation, unspecified, Z00.01 - Encounter for general adult medical examination with abnormal findings, Z13.1 - Encounter for screening for diabetes mellitus, Z13.220 - Encounter for screening for lipoid disorders Lipid Panel 02/20/25 F32.9 - Major depressive disorder, single episode, unspecified, F41.9 - Anxiety disorder, unspecified, G43.009 - Migraine without aura, not intractable, without status migrainosus, N92.6 - Irregular menstruation, unspecified, Z00.01 - Encounter for general adult medical examination with abnormal findings, Z13.1 - Encounter for screening for diabetes mellitus, Z13.220 - Encounter for screening for lipoid disorders Referrals CONSTRUCTION TEACHER Referral Z12.4 - Encounter for screening for malignant neoplasm of cervix Medications: New levonorgestrel-ethinyl estrad 0.1-20 mg-mcg (Vienva) 1 tab PO DAILY 84 tabs 1RF
== END 2025-02-20 15:32 | disposition home or self-care (01) ==
LOC: HO.HMCC 14:52
PROVIDERS: PCP Internal Medicine; Visit Provider Internal Medicine
DX: Z00.01 Encounter for general adult medical examination with abnormal findings (principal); Z12.4 Encounter for screening for malignant neoplasm of cervix; F41.9 Anxiety disorder, unspecified; F32.9 Major depressive disorder, single episode, unspecified; N92.6 Irregular menstruation, unspecified; G43.009 Migraine without aura, not intractable, without status migrainosus

== ENCOUNTER → 2025-02-20 14:51 | Outpatient (BNVA) | payer BC, SELFPAY | PROVIDERS: PCP Internal Medicine; Visit Provider Internal Medicine | DX: Z00.01 Encounter for general adult medical examination with abnormal findings (principal); Z12.4 Encounter for screening for malignant neoplasm of cervix; F41.9 Anxiety disorder, unspecified; F32.9 Major depressive disorder, single episode, unspecified; N92.6 Irregular menstruation, unspecified; G43.009 Migraine without aura, not intractable, without status migrainosus | CPT/HCPCS: 96127 ==